=== PATIENT | male | born 1990 | race Caucasian/White ===

== ENCOUNTER 2016-12-18 18:31 | Emergency (ER) | payer SELFPAY ==
[2016-12-18 18:50] VITALS: BP 123/58; PULSE 81; RESP 18; TEMP 98.4
[2016-12-18] MEDS ORDERED: predniSONE 50 MG TAB PO STA (19:07)
[2016-12-18] MEDS ORDERED: KETOROLAC 60 MG/2 ML VIAL IM STA (19:07)
[2016-12-18] MEDS ORDERED: PSEUDOEPHEDRINE 12HR 120 MG TABLET.ER PO STA (19:07)
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
== END 2016-12-18 19:43 | disposition home or self-care (01) ==
LOC: EC 18:31
DX: H66.93 Otitis media, unspecified, bilateral (principal); R09.81 Nasal congestion; F17.200 Nicotine dependence, unspecified, uncomplicated; Z88.1 Allergy status to other antibiotic agents
CPT/HCPCS: 99282; 96372; J1885; J7512

== ENCOUNTER 2019-05-22 21:43 | Emergency (ER) | payer OTHER ==
[2019-05-22 21:49] VITALS: RESP 18
[2019-05-22] MEDS ORDERED: HYDROmorphone 0.5 MG/0.5 ML SYRINGE IVP STA (21:57)
[2019-05-22] MEDS ORDERED: SODIUM CHLORIDE 0.9% 1,000 ML IV ONE (22:13)
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
[2019-05-22] MEDS ORDERED: HYDROmorphone 1 MG/ML 1 ML SYRINGE IVP STA ×2 (22:24→22:52)
[2019-05-22 22:35] LABS: HCT 42.2 % (39.0-53.0); HGB 13.8 gm/dL (13.0-17.5); MCH 27.5 pg (25.0-35.0); MCHC 32.6 g/dL (31.0-37.0); MCV 84.3 fL (80.0-100.0); Mean Platelet Volume 8.2; Platelet Count 237 k/uL (150-450); RDW 14.2 % (11.5-15.5); WBC 9.5 k/uL (3.8-10.6)
[2019-05-22 22:38] LABS: African American GFR (CKD) >90 (>60 ml/min/1.73 sqM); Anion Gap 11 mmol/L; Blood Urea Nitrogen 13 mg/dL (9-20); Calcium 9.8 mg/dL (8.4-10.2); Carbon Dioxide 26 mmol/L (22-30); Chloride 103 mmol/L (98-107); Glucose 145 mg/dL (74-99); Potassium 4.1 mmol/L (3.5-5.1); Sodium 140 mmol/L (137-145)
[2019-05-23] MEDS ORDERED: LORazepam 2 MG/ML INJ IV STA (00:03)
[2019-05-23] MEDS ORDERED: fentaNYL (PF) 50 MCG/ML 2 ML AMP IVP STA (00:25)
[2019-05-23] MEDS ORDERED: IBUPROFEN 600 MG TAB PO STA (01:33)
[2019-05-23] MEDS ORDERED: traMADol 50 MG STARTER PACK 3 TAB BTL PO STA (01:34)
[2019-05-23 01:57] VITALS: BP 117/71; PULSE 66; TEMP 98.1
== END 2019-05-23 02:06 | disposition home or self-care (01) ==
LOC: EC 21:43
DX: T25.222A Burn of second degree of left foot, initial encounter (principal); T24.001A Burn of unspecified degree of unspecified site of right lower limb, except ankle and foot, initial encounter; T31.0 Burns involving less than 10% of body surface; F17.200 Nicotine dependence, unspecified, uncomplicated; X08.8XXA Exposure to other specified smoke, fire and flames, initial encounter; Y93.23 Activity, snow (alpine) (downhill) skiing, snowboarding, sledding, tobogganing and snow tubing
CPT/HCPCS: 36415; 80048; 85027; 99283; 16020; 96374; 96375 ×2; 96376; 96361; J1170 ×2

== ENCOUNTER 2020-11-18 00:28 | Emergency (ER) | payer OTHER ==
[2020-11-18 00:33] VITALS: BP 120/76; PULSE 89; RESP 20; TEMP 98.2
[2020-11-18] MEDS ORDERED: MORPHINE SULFATE 4 MG/ML SYRINGE IM STA (00:41)
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
--- NOTE | 2020-11-18 01:09 | XR ---
EXAM: XR Right Knee, 3 Views CLINICAL HISTORY: ITS.REASON XR Reason: pain, knee injury TECHNIQUE: Three views of the right knee. COMPARISON: 05/26/2014 FINDINGS: Bones/joints: Unremarkable. No acute fracture. No dislocation. Soft tissues: Thickening and calcifications of the patellar tendon and possibly the quadriceps tendon. IMPRESSION: No acute fracture or traumatic malalignment.
[2020-11-18] MEDS ORDERED: RX INFO: IV CONTRAST WAS GIVEN 1 EACH MISC MISCELLANE PRN (02:39)
[2020-11-18] MEDS ORDERED: SODIUM CHLORIDE 0.9% 500 ML 500 ML IV STA (02:40)
[2020-11-18] MEDS ORDERED: MORPHINE SULFATE 4 MG/ML SYRINGE IV STA (02:40)
--- NOTE | 2020-11-18 03:36 | CT ---
EXAM: CT Angiography of the Right Lower Extremity With Intravenous Contrast CLINICAL HISTORY: ITS.REASON CT Reason: knee injury TECHNIQUE: Axial computed tomographic angiography images of the right lower extremity with intravenous contrast. CTDI is 18.77 mGy and DLP is 1174.8 mGy-cm. This CT exam was performed using one or more of the following dose reduction techniques: automated exposure control, adjustment of the mA and/or kV according to patient size, and/or use of iterative reconstruction technique. MIP reconstructed images were created and reviewed. COMPARISON: No relevant prior studies available. FINDINGS: VASCULATURE: Right femoral/popliteal arteries: No acute findings. No occlusion or significant stenosis. Right calf/foot arteries: No acute findings. No occlusion or significant stenosis. LOWER EXTREMITY: Bones/joints: Patella is surgically absent. No acute fracture. No dislocation. Soft tissues: Left inguinal hernia containing fat. Other findings: Appendix is unremarkable. IMPRESSION: 1. No vascular abnormality identified. 2. Patella is surgically absent. No acute fracture.
[2020-11-18] MEDS ORDERED: HYDROcodone/APAP 5-325MG 1 EACH TAB PO STA (03:47)
[2020-11-18] MEDS ORDERED: IBUPROFEN 400 MG TAB PO STA (03:47)
== END 2020-11-18 04:25 | disposition home or self-care (01) ==
LOC: EC 00:28
DX: S89.91XA Unspecified injury of right lower leg, initial encounter (principal); F17.200 Nicotine dependence, unspecified, uncomplicated; Z88.1 Allergy status to other antibiotic agents; V38.5XXA Driver of three-wheeled motor vehicle injured in noncollision transport accident in traffic accident, initial encounter; Y92.488 Other paved roadways as the place of occurrence of the external cause; Y93.89 Activity, other specified
CPT/HCPCS: 73562; 73706; 99284; 96374; 96372; 96361; J2270; Q9967